=== PATIENT | female | born 1975 | race Caucasian/White ===

== ENCOUNTER 2024-10-22 07:10 | Outpatient (CLI) | payer BC, SELFPAY | END 2024-10-22 07:11 | disposition home or self-care (01) | LOC: NFLDREF 10-25 20:33 | PROVIDERS: PCP Physician Assistant Medical; Referring Provider Physician Assistant Medical; Visit Provider Physician Assistant Medical | DX: N30.01 Acute cystitis with hematuria (principal); N39.0 Urinary tract infection, site not specified; R11.2 Nausea with vomiting, unspecified | CPT/HCPCS: 87086 ==

== ENCOUNTER 2025-06-24 09:14 | Outpatient (CLI) | payer BC, SELFPAY | END 2025-06-24 09:15 | disposition home or self-care (01) | LOC: NFLDREF 06-27 08:44 | PROVIDERS: PCP Physician Assistant Medical; Referring Provider Physician Assistant Medical; Visit Provider Physician Assistant Medical | DX: Z13.9 Encounter for screening, unspecified (principal); Z13.6 Encounter for screening for cardiovascular disorders | CPT/HCPCS: 80053; 80061 ==